=== PATIENT | female | born 1965 | race Caucasian/White ===

== ENCOUNTER 2017-01-23 15:10 | Inpatient (IN) | payer BC ==
[~2017-01-23] VITALS: Ht 170.2 cm; Wt 95.3 kg
[2017-01-23] MEDS ORDERED: AMOX1TAB16 PO (15:36)
[2017-01-23] MEDS ORDERED: HYDROMORPHONE 1 MG/1 ML DISP.SYRIN IV ONE (16:00)
[2017-01-23] MEDS ORDERED: ONDANSETRON 4 MG/2 ML VIAL IV ONE (16:00)
[2017-01-23] MEDS ORDERED: IV NORMAL SALINE 1000 ML BAG IV ONE ×2 (16:00→17:30)
[2017-01-23 16:17] LABS: BASOPHILS % (AUTO) 0.5 % (0.0-2.0); EOSINOPHILS % (AUTO) 0.1 % (0.0-7.0); HEMATOCRIT 33.2 % (37-47); LYMPHOCYTES # (AUTO) 0.1 K/UL (0.8-4.8); LYMPHOCYTES % (AUTO) 5.5 % (20.5-51.5); MEAN CORPUSCULAR HEMOGLOBIN 29.5 UUG (27.0-31.0); MEAN CORPUSCULAR HGB CONC 33 g/dL (32.0-37.0); MONOCYTES % (AUTO) 0.1 % (0.0-11.0); NEUTROPHILS # (AUTO) 2.5 K/UL (1.8-8.9); NEUTROPHILS % (AUTO) 93.8 % (38.5-71.5); PLATELET COUNT (AUTO) 143 K/UL (150-450); RED BLOOD CELL COUNT(AUTO) 3.73 MIL/UL (4.2-5.4)
[2017-01-23 16:19] LABS: CREATININE 1.2 mg/dL (0.6-1.3); POTASSIUM 3.6 mmol/L (3.5-5.1)
[2017-01-23 16:23] LABS: WHITE BLOOD COUNT (AUTO) 2.6 K/UL (4.0-11.2)
[2017-01-23 16:24] LABS: BILIRUBIN,DIRECT 0.1 mg/dL (0.0-0.2); BILIRUBIN,TOTAL 0.4 mg/dL (0.2-1.0); TOTAL PROTEIN, SERUM 7.3 g/dL (6.4-8.2)
[2017-01-23 16:28] LABS: *BILIRUBIN,URIN NEGATIVE (NEGATIVE); *BLOOD, URINE NEGATIVE (NEGATIVE); *CLARITY,URINE CLEAR (CLEAR); *COLOR,URINE YELLOW (YELLOW); *KETONES,URINE NEGATIVE (NEGATIVE); *PROTEIN,URINE NEGATIVE (NEGATIVE); *UROBILINOGEN,URINE 0.2 E.U./dl (NORMAL); LEUKOCYTE ESTERASE ,URINE NEGATIVE (NEGATIVE); NITRITE, URINE NEGATIVE (NEGATIVE); UGLUCOSE NEGATIVE (NEGATIVE)
[2017-01-23 16:38] LABS: SQUAMOUS EPITHELIAL CELL,UR FEW /HPF (NONE SEEN); WBC,URINE 0-3 /HPF (0-3)
[2017-01-23] MEDS ORDERED: HYDROMORPHONE 1 MG/1 ML DISP.SYRIN IM ONE (16:45)
[2017-01-23] MEDS ORDERED: PROMETHAZINE HCL 25 MG/1 ML VIAL IM ONE (16:45)
[2017-01-23 16:47] LABS: BAND % (MANUAL) 21 % (0-10); LYMPHOCYTES % (MANUAL) 7 % (20-40); NEUTROPHILS % (MANUAL) 72 % (42-75)
[2017-01-23] MEDS ORDERED: PIPERACILLIN SODIUM/TAZOBACTAM 3.375 G in IV DEXTROSE 5% 50 ML IV ONE (17:00)
[2017-01-23] MEDS ORDERED: VANCOMYCIN IV 1,000 MG in IV DEXTROSE 5% 250 ML IV ONE (17:00)
[2017-01-23] MEDS ORDERED: PIPERACILLIN/TAZOBACTAM/D5W 50 ML IV ONE (17:02)
[2017-01-23] MEDS ORDERED: VANCOMYCIN IV 200 ML ONE (17:02)
[2017-01-23] MEDS ORDERED: IBUPROFEN 600 MG TABLET PO ONE (17:15)
[2017-01-23] MEDS ORDERED: IBUPROFEN 600 MG TABLET ONE (17:19)
--- NOTE | 2017-01-23 17:34 | NUR ---
PT NOT CANDIDATE FOR MRSA, BELONGING LIST COMPLETED.
--- NOTE | 2017-01-23 17:45 | NUR ---
DR BOX AT THE BEDSIDE FOR EVAL AND EXAM.
--- NOTE | 2017-01-23 17:50 | NUR ---
ADMITTED PATIENT TELE UNIT UNDER THE CARE OF DR. ENZO BORJA, ORIENTED TO ROOM AND CALL LIGHTS. MD AWARE WITH ORDER.
[2017-01-23] MEDS ORDERED: ONDANSETRON 4 MG/2 ML VIAL IV PRN (18:00)
[2017-01-23] MEDS ORDERED: ZOLPIDEM 5 MG TABLET PO PRN (18:00)
[2017-01-23] MEDS ORDERED: MAGNESIUM HYDROXIDE 30 ML LIQUID UDC PO PRN (18:00)
[2017-01-23] MEDS ORDERED: Z GUARD REMEDY PASTE 57 GM TUBE TOP PRN (18:00)
[2017-01-23 18:05] VITALS: BP 105/75
--- NOTE | 2017-01-23 18:53 | NUR ---
CLINICAL PHARMACY NOTE:VANCOMYCIN DOSING Request for vancomycin dosing 0n 51 y/o female 5'7" 210lbs for sepsis Temp 102.2 BUN 21 Scr 1.2 WBC 2.6 Band 21 also on zosyn vancomycin 1gm given in ER continue vancomycin 1250mg ivpb q16h estimated trough 15. Will order trough level prior to 4ht dose. Will continue monitor
[2017-01-23] MEDS: IV NS 1000 ML 1,000 ML IV PRN (19:29)
[2017-01-23 20:00] VITALS: BP 104/63
[2017-01-23] MEDS ORDERED: ENOXAPARIN SODIUM 40 MG/0.4 ML DISP.SYRIN SQ SCH (21:00)
[2017-01-23] MEDS ORDERED: diphenhydrAMINE 50 MG/1 ML VIAL IV PRN (22:15)
[2017-01-23] MEDS ORDERED: FAMOTIDINE. 20 MG/2 ML VIAL IV SCH (22:30)
[2017-01-23] MEDS ORDERED: diphenhydrAMINE 50 MG/1 ML VIAL ONE (23:00)
[2017-01-24] VITALS: BP 102/72
[2017-01-24] MEDS ORDERED: PIPERACILLIN SODIUM/TAZO 3.375 GM VIAL ONE (01:19)
[2017-01-24] MEDS: PIPERACILLIN/TAZOBACTAM/D5W 3.375 G in PREMIXED 1 EACH IV SCH ×3 (01:54→17:37)
[2017-01-24] MEDS ORDERED: ZOLPIDEM 5 MG TABLET ONE (03:10)
[2017-01-24 04:00] VITALS: BP 104/69
--- NOTE | 2017-01-24 04:00 | NUR ---
PATIENT BLOOD CULTURE PRELIMINARY REPORT GRAM NEGATIVE RAMEZ ON GRAM STAIN, NOTIFY TONY SARMIENTO, NURSE PRACTITIONER.
[2017-01-24] MEDS: IBUPROFEN 600 MG TABLET PO PRN ×2 (04:18→13:31)
--- NOTE | 2017-01-24 04:20 | NUR ---
PATIENT HAS SLIGHT ELEVATED TEMP OF 100. ORAL, GIVEN COOLING MEASURES, AND MOTRIN 600MG FOR PAIN AND FOR TEMP.
[2017-01-24] MEDS: VANCOMYCIN IV 1,250 MG in IV DEXTROSE 5% 500 ML IV SCH ×2 (04:59→21:03)
--- NOTE | 2017-01-24 05:06 | NUR ---
NURSE PRACTITIONER TONY SARMIENTO RESPONSE WITH NO NEW ORDER AT THIS TIME.
--- NOTE | 2017-01-24 05:07 | NUR ---
RECHECK TEMP 99.5 ORAL
--- NOTE | 2017-01-24 06:06 | NUR ---
PATIENT ABLE TO SLEEP AFTER AMBIEN, NO SOB NO CHEST PAIN NOTED, CONT TO MONITOR.
[2017-01-24] MEDS ORDERED: PANTOPRAZOLE SODIUM 40 MG TABLET.DR PO SCH (07:00)
--- NOTE | 2017-01-24 07:00 | NUR ---
PT IS LAYING IN BED COMFORTABLY. NO S/S OF RESPIRATORY DISTRESS NOTED. IV INTACT/PATENT. ALL SAFETY NEEDS ARE MET. NO PAIN NOTED/REPORTED. WILL CONTINUE TO MONITOR.
[2017-01-24 07:16] LABS: CREATININE 0.9 mg/dL (0.6-1.3); MAGNESIUM 1.7 mg/dL (1.8-2.4); PHOSPHOROUS 3.6 mg/dL (2.5-4.9); POTASSIUM 3.5 mmol/L (3.5-5.1)
[2017-01-24 07:21] LABS: THYROID STIMULATING HORMONE 1.171 mIU/mL (0.358-3.740)
[2017-01-24 07:37] LABS: BASOPHILS % (AUTO) 0.1 % (0.0-2.0); EOSINOPHILS % (AUTO) 0.3 % (0.0-7.0); HEMOGLOBIN 9.6 G/DL (12.0-16.0); LYMPHOCYTES # (AUTO) 0.3 K/UL (0.8-4.8); LYMPHOCYTES % (AUTO) 3.4 % (20.5-51.5); MEAN CORPUSCULAR HEMOGLOBIN 29.8 UUG (27.0-31.0); MEAN CORPUSCULAR HGB CONC 33 g/dL (32.0-37.0); MEAN CORPUSCULAR VOLUME 89.6 FL (81.0-99.0); MONOCYTES % (AUTO) 0.2 % (0.0-11.0); NEUTROPHILS # (AUTO) 8.7 K/UL (1.8-8.9); RED BLOOD CELL COUNT(AUTO) 3.24 MIL/UL (4.2-5.4)
[2017-01-24 07:39] LABS: PLATELET COUNT (AUTO) 107 K/UL (150-450)
[2017-01-24 08:06] LABS: BAND % (MANUAL) 40 % (0-10); LYMPHOCYTES % (MANUAL) 3 % (20-40); MONOCYTES % (MANUAL) 3 % (2-10); NEUTROPHILS % (MANUAL) 54 % (42-75)
[2017-01-24 11:45] VITALS: BP 100/69
--- NOTE | 2017-01-24 13:57 | NUR ---
The patient verbalized that she wanted to be transferred to [facility] because all of her MDs are there. She stated that she spoke to Dr. Valdivia who is covering for MD, Dr. Curt Evans [ ], and he stated that Dr. Samaniego will be her admitting MD at [facility] [ ]. Spoke to Ros from Dr. Samaniego's office early in the morning today to confirm but she stated that she will call back once she asks Dr. Samaniego. She has not called back. This desk reporter called [facility] [ ] but they still have not received any call from Dr. Samaniego. In the meantime, faxed the patient's information to [facility] [ ; ] to see if they can find an admitting MD. Updated the patient on the situation and she was very thankful. CM/SW will follow-up.
[2017-01-24] MEDS: MAGNESIUM SULFATE/D5W 100 ML IV SCH ×2 (14:40→15:26)
[2017-01-24] MEDS: SOD FERRIC GLUC COMPLX/SUCROSE 125 MG in IV NORMAL SALINE 100 ML IV SCH (15:26)
[2017-01-24] MEDS: ACETAMINOPHEN 325 MG TABLET PO PRN (15:26)
[2017-01-24] MEDS ORDERED: IBUPROFEN 600 MG TABLET PO ONE (15:30)
[2017-01-24] MEDS ORDERED: IBUP200C5 PO (15:57)
[2017-01-24] MEDS ORDERED: ACET-2154 PO (15:59)
[2017-01-24 16:00] VITALS: BP 132/79
--- NOTE | 2017-01-24 16:11 | NUR ---
ADVISED DR. DE LA GARZA THAT PT RECEIVED TYLENOL AND MOTRIN 46 MIN AGO
--- NOTE | 2017-01-24 16:11 | NUR ---
ADVISED DR. DE LA GARZA ABOUT PT'S TEMPERATURE 102.4, HR 104. NO NEW ORDERS
--- NOTE | 2017-01-24 16:12 | NUR ---
NO NEW ORDERS PER DR. DE LA GARZA "GIVE ICE BAGS". ICE BAGS PROVIDED TO THE PT.
--- NOTE | 2017-01-24 16:18 | NUR ---
CLINICAL PHARMACY NOTE:VANCOMYCIN DOSING To continue vancomycin dosing 0n 51 y/o female 5'7" 210lbs for sepsis Temp 100 BUN 14 Scr 0.9 WBC 9.0 also on zosyn Assessment/Plan Will continue vancomycin 1250mg ivpb q16h estimated trough 15. Will order trough level prior to 4th dose (not ordered yet). Will continue monitor renal function and adjust if were to change. Will continue to monitor
[2017-01-24] MEDS ORDERED: NORMAL SALINE FLUSH 10 ML DISP.SYRIN ONE (16:24)
[2017-01-24] MEDS ORDERED: IV NORMAL SALINE 250 ML IV ONE (16:24)
[2017-01-24] MEDS ORDERED: IOHEXOL 300MG/ML 100 ML INFUS..BTL ONE (16:24)
[2017-01-24] MEDS ORDERED: VANCOMYCIN IV 1 G in PREMIXED 0 EACH IV SCH (17:00)
--- NOTE | 2017-01-24 19:00 | NUR ---
PATIENT ALERT AWAKE, DR LARIOS SPOKE WITH THE PATIENT AND NOTIFY HER THAT PICC LINE NEEDS TO COME OUT, AT FIRST PATIENT REFUSED TO FOLLOW INSTRUCTION, BUT FINALLY AGREED TO D/C IT BUT WANTED D/C PICC AFTER ALL ANTIBIOTICS DURING THE NIGHT. RESPECT PATIENT WISHES.
--- NOTE | 2017-01-24 19:01 | NUR ---
PT IS LAYING IN BED COMFORTABLY. NO S/S OF RESPIRATORY DISTRESS NOTED. NO PAIN REPORTED. PT ADVISES THAT "SHE FEELS SO MUCH BETTER" AFTER RECEIVING TYLENOL/ADVIL. IV INTACT/PATENT. ALL SAFETY NEEDS ARE MET. PT'S MOTHER BY THE BEDSIDE.
[2017-01-24 20:00] VITALS: BP 96/67
[2017-01-25] MEDS: PIPERACILLIN/TAZOBACTAM/D5W 3.375 G in PREMIXED 1 EACH IV SCH ×3 (00:57→16:42)
[2017-01-25] MEDS: IV NS 1000 ML 1,000 ML IV PRN (03:35)
--- NOTE | 2017-01-25 05:45 | NUR ---
PATIENT SLEPT ON AND OFF, OFFER AMBIEN BUT REFUSED TO TAKE IT, NO SOB NO CHEST PAIN NOTED, CONT TO MONITOR.
[2017-01-25 06:17] VITALS: BP 137/72
[2017-01-25 06:37] LABS: BASOPHILS % (AUTO) 0.2 % (0.0-2.0); EOSINOPHILS # (AUTO) 0.1 K/uL (0.0-0.7); HEMATOCRIT 27.5 % (37-47); HEMOGLOBIN 9.2 G/DL (12.0-16.0); LYMPHOCYTES # (AUTO) 0.8 K/UL (0.8-4.8); LYMPHOCYTES % (AUTO) 15.5 % (20.5-51.5); MEAN CORPUSCULAR HEMOGLOBIN 30.3 UUG (27.0-31.0); MEAN CORPUSCULAR HGB CONC 33 g/dL (32.0-37.0); MEAN CORPUSCULAR VOLUME 90.9 FL (81.0-99.0); MONOCYTES # (AUTO) 0.2 K/UL (0.1-1.30); MONOCYTES % (AUTO) 4.8 % (0.0-11.0); NEUTROPHILS % (AUTO) 77.5 % (38.5-71.5); PLATELET COUNT (AUTO) 78 K/UL (150-450); RED BLOOD CELL COUNT(AUTO) 3.03 MIL/UL (4.2-5.4); WHITE BLOOD COUNT (AUTO) 5.1 K/UL (4.0-11.2)
[2017-01-25 06:46] LABS: CREATININE 0.8 mg/dL (0.6-1.3); MAGNESIUM 2.2 mg/dL (1.8-2.4); POTASSIUM 3.3 mmol/L (3.5-5.1)
[2017-01-25 08:14] LABS: BAND % (MANUAL) 21 % (0-10); LYMPHOCYTES % (MANUAL) 17 % (20-40); MONOCYTES % (MANUAL) 3 % (2-10); NEUTROPHILS % (MANUAL) 59 % (42-75)
[2017-01-25] MEDS ORDERED: FOLIC ACID 1 MG TABLET PO SCH (09:00)
[2017-01-25] MEDS ORDERED: FAMOTIDINE. 20 MG/2 ML VIAL IV SCH (09:00)
[2017-01-25 09:12] LABS: CANCER AG, 125 5.2 U/mL (0.0-38.1)
[2017-01-25] MEDS ORDERED: POTASSIUM CHLORIDE 20 MEQ TAB.PRT.SR PO ONE (10:30)
[2017-01-25 11:25] VITALS: BP 109/77
[2017-01-25] MEDS: VANCOMYCIN IV 1,250 MG in IV DEXTROSE 5% 500 ML IV SCH (12:51)
[2017-01-25 13:00] LABS: *OCCULT BLOOD STOOL NEGATIVE (NEGATIVE)
[2017-01-25 13:06] LABS: ALBUMIN 2.9 g/dL (2.9-4.4); ALPHA-1-GLOBULIN 0.3 g/dL (0.0-0.4); ALPHA-2-GLOBULIN 0.8 g/dL (0.4-1.0); BETA GLOBULIN 0.8 g/dL (0.7-1.3); GAMMA GLOBULIN 0.9 g/dL (0.4-1.8); GLOBULIN, TOTAL 2.8 g/dL (2.2-3.9); M-SPIKE Not Observed g/dL (Not Observed)
[2017-01-25] MEDS: SOD FERRIC GLUC COMPLX/SUCROSE 125 MG in IV NORMAL SALINE 100 ML IV SCH (14:28)
[2017-01-25] MEDS: ACETAMINOPHEN 325 MG TABLET PO PRN (15:06)
[2017-01-25 15:23] VITALS: BP 129/81
[2017-01-25 16:14] VITALS: BP 124/83
--- NOTE | 2017-01-25 16:37 | NUR ---
PT REPORT IS GIVEN TO THE CHARGE NURSE. PICC LINE IS REMOVED, NO S/S OF BLEEDING. PT HAS NEW PERIPHERAL IV. NO S/S OF RESPIRATORY DISTRESS NOTED. ALL SAFETY NEEDS ARE MET.
--- NOTE | 2017-01-25 17:01 | NUR ---
CLINICAL PHARMACY NOTE:VANCOMYCIN DOSING To continue vancomycin dosing 0n 51 y/o female 5'7" 210lbs for sepsis Temp 98.7 BUN 12 Scr 0.8 WBC 5.1 also on zosyn Assessment/Plan Will continue vancomycin 1250mg ivpb q16h estimated trough 15. Will order trough level prior to 4th dose (ordered for tomorrow at 0430). RN will endorse to nightshift RN to hold dose if >20. Will check level in am and adjust as appropriate. Will continue monitor renal function and adjust if were to change. Will continue to monitor
[2017-01-25] MEDS ORDERED: DIPH50VI5 IV (18:48)
[2017-01-25] MEDS ORDERED: PIPE3.379 IV (18:48)
[2017-01-25] MEDS ORDERED: RXVAN XX (18:48)
[2017-01-25] MEDS ORDERED: Ibuprofen PO (18:48)
[2017-01-25] MEDS ORDERED: Acetaminophen PO (18:48)
[2017-01-25] MEDS ORDERED: Folic Acid PO (18:48)
[2017-01-25] MEDS ORDERED: MAGN400O4 PO (18:48)
[2017-01-25] MEDS ORDERED: FAMO-132 PO (18:48)
[2017-01-25 19:52] VITALS: BP 111/80
--- NOTE | 2017-01-25 20:50 | NUR ---
CALLED [facility] AND GIVE REPORT TO AAN REGARDING TRANSFERRING PATIENT, GIVEN REPORT ALSO TO [facility] STAFF, PATIENT IN STABLE CONDITION, TAKEN ALL BELONGINGS.
[2017-01-25 23:14] LABS: *IMMUNOGLOBULIN G, SERUM 981 mg/dL (700-1600); IMMUNOGLOBULIN A, SERUM 200 mg/dL (87-352); IMMUNOGLOBULIN M, SERUM 129 mg/dL (26-217)
== END 2017-01-25 21:09 | disposition short-term general hospital (02) | DRG 314 ==
LOC: ER 15:13 → TELE 17:29 → MED 01-24 14:02
PROVIDERS: ADMIT Nurse Practitioner Acute Care; ATTEND Nurse Practitioner Acute Care
PROC: 02HV33Z Insertion of Infusion Device into Superior Vena Cava, Percutaneous Approach (ICD-10-PCS; principal; 2017-01-23)
DX: T80.211A Bloodstream infection due to central venous catheter, initial encounter (principal); A41.52 Sepsis due to Pseudomonas; E44.0 Moderate protein-calorie malnutrition; D61.818 Other pancytopenia; E87.1 Hypo-osmolality and hyponatremia; C56.9 Malignant neoplasm of unspecified ovary; K56.7 Ileus, unspecified; E87.2 Acidosis; C78.6 Secondary malignant neoplasm of retroperitoneum and peritoneum; A04.9 Bacterial intestinal infection, unspecified; E66.01 Morbid (severe) obesity due to excess calories; Z68.32 Body mass index [BMI] 32.0-32.9, adult; E86.0 Dehydration; Z88.5 Allergy status to narcotic agent; M06.9 Rheumatoid arthritis, unspecified; Z90.710 Acquired absence of both cervix and uterus; Z90.722 Acquired absence of ovaries, bilateral; Z92.21 Personal history of antineoplastic chemotherapy; Z98.84 Bariatric surgery status; K52.9 Noninfective gastroenteritis and colitis, unspecified; E83.42 Hypomagnesemia; E87.6 Hypokalemia; D50.9 Iron deficiency anemia, unspecified; D18.09 Hemangioma of other sites; Y83.9 Surgical procedure, unspecified as the cause of abnormal reaction of the patient, or of later complication, without mention of misadventure at the time of the procedure; Y92.009 Unspecified place in unspecified non-institutional (private) residence as the place of occurrence of the external cause; J32.0 Chronic maxillary sinusitis; L26 Exfoliative dermatitis; J32.1 Chronic frontal sinusitis; E53.8 Deficiency of other specified B group vitamins
CPT/HCPCS: 36415; 70220; 71010; 82746; 82784; 83550; 83605; 83690; 83735; 84100; 84155; 84165; 84443; 85025; 85610; 85730; 86334; 87040; 87077; 87086; 93005; A4663; J1200; J1650; J2543; J2916; J3370; J3475; J3490; J7030; J7050; J7060; Q9967